=== PATIENT | female | born 1990 | race Caucasian/White ===

== ENCOUNTER 2018-10-20 04:53 | Emergency (ER) | payer SELFPAY ==
[2018-10-20] MEDS ORDERED: IPRATROPIUM/ALBUTEROL 3 ML DEYVIAL ONE (05:01)
[2018-10-20] MEDS ORDERED: IPRATROPIUM/ALBUTEROL 3 ML DEYVIAL IH ONE (05:06)
--- NOTE | 2018-10-20 05:36 | EDPHY ---
H & P Stated Complaint: cough and SOB Time Seen by Provider: 10/20/18 05:00 HPI/ROS: HPI The patient presents with cough and shortness of breath which has been present for the last 1 week though became worse over the last 3 days and is worse at night. The patient reports a dry cough which is gotten progressively worse over the last several days and has been unable to sleep much tonight because of it. About 1 and half months ago the patient was seen at an urgent care and was diagnosed with bronchitis, she took azithromycin and her symptoms improved significantly. She then traveled to [facility] for about 3 weeks. There she had a mild cold. She was seen by a doctor there and was told that she had recovered. She traveled home and had been feeling fine until about 1 week ago. She has not had any rhinorrhea, sore throat, fever. She does not have any chest pain. She is a 1 pack per day cigarette smoker for the last 1 year. She does not have any history of any lung disease or asthma. REVIEW OF SYSTEMS 10 systems were reviewed and negative with the exception of the elements mentioned in the history of present illness. PMHx: Depression, no current primary care doctor Soc Hx: 1 pack per day smoker, here with boyfriend PHYSICAL General Appearance: Alert, no distress Eyes: Pupils equal and round no pallor or injection ENT, Mouth: Mucous membranes moist Respiratory: There are no retractions, she speaks full sentences, she has scattered expiratory wheezes Cardiovascular: Regular rate and rhythm Gastrointestinal: Abdomen is soft and non-tender, no masses, bowel sounds normal Neurological: A&O, moves all extremities Skin: Warm and dry, no rashes Musculoskeletal: Neck is supple non tender Extremities: symmetrical, full range of motion Psychiatric: Patient is oriented X 3, there is no agitation Source: Patient Exam Limitations: No limitations - Personal History LMP (Females 10-55): 1-7 Days Ago Current Tetanus/Diphtheria Vaccine: Unsure Current Tetanus Diphtheria and Acellular Pertussis (TDAP): Unsure - Medical/Surgical History Hx Asthma: No Hx Chronic Respiratory Disease: No Hx Diabetes: No Hx Cardiac Disease: No Hx Renal Disease: No Hx Cirrhosis: No Hx Alcoholism: No Hx HIV/AIDS: No Hx Splenectomy or Spleen Trauma: No Other PMH: denies - Social History Smoking Status: Current every day smoker Constitutional: Initial Vital Signs Temperature (C) 37.0 C 10/20/18 04:54 Heart Rate 59 L 10/20/18 04:54 Respiratory Rate 18 10/20/18 04:54 Blood Pressure 120/67 10/20/18 04:54 O2 Sat (%) 87 L 10/20/18 04:54 O2 Delivery Mode Room Air Allergies/Adverse Reactions: No Known Allergies Allergy (Unverified 10/20/18 04:57) Home Medications: Medication Instructions Recorded Albuterol Hfa Anes Only [Proair 2 puffs IH QID #1 mdi 10/20/18 Hfa Icu (*)] Azithromycin 250 mg PO DAILY 4 Days #4 tablet 10/20/18 Prozac 10 MG (*) 10/20/18 predniSONE 40 mg PO DAILY 4 Days tablet 10/20/18 Medical Decision Making - Diagnostics Imaging Results: Chest x-ray two view shows increased interstitial markings, hyperinflation, no obvious infiltrate, interpreted by me, radiology interpretation is pending. Imaging: I viewed and interpreted images myself Differential Diagnosis: This is a 28-year-old healthy woman who does have a smoking history who presents with progressive cough for the last 1 week, worse at night, dry in nature. Differential diagnosis includes pneumonia, pneumothorax, bronchitis, less likely pulmonary embolism. In the emergency department, patient early initially received a DuoNeb. She was persistently hypoxic. Thus, she underwent chest x-ray and basic laboratory testing. She does appear hyperinflated, there is no obvious infiltrate. I suspect she has a bronchitis and her strong smoking history is making it difficult for her to recover from this. She does not have any true history of childhood asthma. I will treat her here with prednisone and azithromycin. She received albuterol and her oxygen saturations improved remarkably and she felt much better. Her sats are now about 98%. She will be discharged and have given her follow-up information with [facility]. - Data Points Laboratory Results: Laboratory Results 10/20/18 05:55 10/20/18 05:55 10/20/18 10/20/18 10/20/18 05:55 05:55 05:55 WBC 10.03 10^3/uL H 10^3/uL (3.80-9.50) RBC 5.44 10^6/uL H 10^6/uL (4.18-5.33) Hgb 16.5 g/dL H g/dL (12.6-16.3) Hct 48.9 % H % (38.0-47.0) MCV 89.9 fL fL (81.5-99.8) MCH 30.3 pg pg (27.9-34.1) MCHC 33.7 g/dL g/dL (32.4-36.7) RDW 13.5 % % (11.5-15.2) Plt Count 253 10^3/uL 10^3/uL (150-400) MPV 10.3 fL fL (8.7-11.7) Neut % (Auto) 46.4 % % (39.3-74.2) Lymph % (Auto) 36.4 % % (15.0-45.0) [place] % (Auto) 5.3 % % (4.5-13.0) Eos % (Auto) 10.9 % H % (0.6-7.6) Baso % (Auto) 0.8 % % (0.3-1.7) Nucleat RBC Rel Count 0.0 % % (0.0-0.2) Absolute Neuts (auto) 4.66 10^3/uL 10^3/uL (1.70-6.50) Absolute Lymphs (auto) 3.65 10^3/uL H 10^3/uL (1.00-3.00) Absolute Monos (auto) 0.53 10^3/uL 10^3/uL (0.30-0.80) Absolute Eos (auto) 1.09 10^3/uL H 10^3/uL (0.03-0.40) Absolute Basos (auto) 0.08 10^3/uL 10^3/uL (0.02-0.10) Absolute Nucleated RBC 0.00 10^3/uL 10^3/uL (0-0.01) Immature Gran % 0.2 % % (0.0-1.1) Immature Gran # 0.02 10^3/uL 10^3/uL (0.00-0.10) D-Dimer < 0.27 ug/mLFEU ug/mLFEU (0.00-0.50) Sodium 141 mEq/L mEq/L (135-145) Potassium 4.0 mEq/L mEq/L (3.3-5.0) Chloride 101 mEq/L mEq/L (97-110) Carbon Dioxide 29 mEq/l mEq/l (22-31) Anion Gap 11 mEq/L mEq/L (6-14) BUN 7 mg/dL mg/dL (7-23) Creatinine 0.7 mg/dL mg/dL (0.6-1.0) Estimated GFR > 60 Glucose 105 mg/dL H mg/dL (70-100) Calcium 9.6 mg/dL mg/dL (8.5-10.4) Medications Given: Discontinued Medications Albuterol (Proventil Neb) 3 ml IH EDNOW ONE Stop: 10/20/18 06:19 Last Admin: 10/20/18 06:23 Dose: 3 ml Albuterol/Ipratropium (Duoneb) 3 ml IH EDNOW ONE Stop: 10/20/18 05:07 Last Admin: 10/20/18 05:22 Dose: 3 ml Azithromycin (Zithromax) 500 mg PO EDNOW ONE PRN Reason: Protocol Stop: 10/20/18 06:01 Last Admin: 10/20/18 06:23 Dose: 500 mg Prednisone (Prednisone) 40 mg PO EDNOW ONE Stop: 10/20/18 05:52 Last Admin: 10/20/18 05:57 Dose: 40 mg Departure - Departure Disposition: Home, Routine, Self-Care Clinical Impression: Acute bronchitis Qualifiers: Bronchitis organism: unspecified organism Qualified Code(s): J20.9 - Acute bronchitis, unspecified Condition: Good Instructions: How to Stop Smoking (ED), Acute Bronchitis (ED) Additional Instructions: I recommend that you [facility] to arrange for follow-up in 1-2 days. You should return to the emergency department if your worse in any way. Referrals: [facility],. [Clinic] - As per Instructions Prescriptions: Albuterol Hfa Anes Only [Proair Hfa Icu (*)] 2 puffs IH QID #1 mdi Azithromycin 250 mg PO DAILY 4 Days #4 tablet predniSONE 40 mg PO DAILY 4 Days tablet
[2018-10-20] MEDS ORDERED: predniSONE 20 MG TAB PO ONE (05:51)
[2018-10-20] MEDS ORDERED: AZITHROMYCIN 250 MG TAB PO ONE (06:00)
[2018-10-20 06:01] LABS: PLATELET COUNT 253 10^3/uL (150-400)
[2018-10-20] MEDS ORDERED: ALBUTEROL 3 ML DEYVIAL IH ONE (06:18)
[2018-10-20 07:14] VITALS: BP 120/78
== END 2018-10-20 07:14 | disposition home or self-care (01) ==
DX: J20.9 Acute bronchitis, unspecified (principal); F17.200 Nicotine dependence, unspecified, uncomplicated
CPT/HCPCS: J7512; J7613